=== PATIENT | male | born 1995 | race Caucasian/White ===

== ENCOUNTER 2019-10-22 13:07 | Emergency (ER) | payer SELFPAY ==
[2019-10-22 13:24] VITALS: BP 144/91; PULSE 92; RESP 20; TEMP 36.9; O2SAT 99
--- NOTE | 2019-10-22 14:06 | ED.GENADULT ---
HPI - General Adult General Chief complaint: Urogenital-Male Stated complaint: std check Time Seen by Provider: 10/22/19 14:06 Source: patient and RN notes reviewed Mode of arrival: ambulatory Limitations: no limitations History of Present Illness HPI narrative: 24-year-old male presents with urinary complaints and possible STD for the past 3 days. Dysuria consist of burning, cloudy urine. Trip says he has been having genital itching with green discharge. No treatment. He says discharge, burning with urination, and itching started 3 days after having unprotected sex with a new partner on 10/16/19. Prior to this sexual partner had not had sexual intercourse in months. Denies fever or chills. Denies nausea, vomiting, and abdominal pain. No significant penile pain. Concern for STDs due to history of recently had unprotected intercourse and discharge. Denies multiple partners. No flank pain. Exacerbating factors urinating. Denies hematuria or unusual penile bleeding. Tolerating liquids well. Remains active. The patient reports he have not been diagnosed with COVID-19. The patient reports he are not waiting for the results of a COVID-19 lab test. The patient reports he do not have fever, chills, weakness, fatigue, myalgia, or facial swelling. The patient reports he do not have a new or worsening cough or shortness of breath. Denies chest pain. The patient reports he do not have any rhinorrhea, congestion, sore throat, nausea, vomiting, abdominal pain, and diarrhea. Tolerating po intake well. Denies recent traveling. Denies concerns for COVID-19 or exposures been home since [id number] order except for essential household needs, working, and return home. At this time, patient is not suspected of having COVID-19. Some parts of this dictation were generated by voice recognition software and may contain typographical and/or grammatical inaccuracies. Related Data Allergies Allergy/AdvReac Type Severity Reaction Status Date / Time No Known Allergies Allergy Verified 10/22/19 13:53 Review of Systems Review of Systems: Narrative: CONSTITUTIONAL: Denies fever, chills, sweats. EYES: Denies visual changes, redness, discharge. ENT: Denies rhinorrhea, congestion, sore throat, otalgia. CARDIOVASCULAR: Denies chest pain, palpitations, edema. RESPIRATORY: Denies dyspnea, wheezing, cough. GASTROINTESTINAL: Denies abdominal pain, nausea, vomiting, diarrhea. GENITOURINARY: Denies dysuria, hematuria. Complains of possible STD, genital discharge and itching. SKIN: Denies rash or itching. MUSCULOSKELETAL: Denies acute back pain, joint pain, or myalgia. NEUROLOGIC: Denies numbness, or focal weakness. PSYCHIATRIC: Denies anxiety or depression. All systems reviewed & are unremarkable except as noted in HPI and below. [facility] Past Medical History Medical History (Updated 10/23/19 @ 00:00 by Siomara Johnson) No significant past medical history Surgical History Surgical History (Updated 10/22/19 @ 14:20 by LENNIE Leyva) No significant past surgical history Family History Family History (Updated 10/22/19 @ 14:21 by LENNIE Leyva) Father Hypertension Mother Alive and well Grandparent Alcohol abuse Social History Social History (Updated 10/22/19 @ 14:23 by LENNIE Leyva) Smoking status: Former smoker Smoking end date: 05/27/19 Alcohol intake: current Substance use: current Substance use type: marijuana Living arrangements: with family Occupation/Education: occupation Gender identity (if verbalized by the patient): Male Comments At time of signature, agree with nurse past medical, surgical, social, and family history. There is no relevant family history pertinent to the presenting complaint. Exam Narrative: Exam Narrative: GENERAL: This is a well-nourished, well-developed patient, in no apparent distress. Talks in full sentences and ambulates with steady gait without
[2019-10-22] MEDS: AZITHROMYCIN 250 MG TABLET 1000 MG PO (14:19)
[2019-10-22] MEDS: cefTRIAXone 250 MG VIAL IM (14:25)
[2019-10-22] MEDS: LIDOCAINE HCL 1% LOCAL INJ 20 ML VIAL INFILTRATE (14:26)
== END 2019-10-22 14:48 | disposition home or self-care (01) ==
PROVIDERS: Emergency Provider Nurse Practitioner Family
DX: Z20.2 Contact with and (suspected) exposure to infections with a predominantly sexual mode of transmission (principal); Z87.891 Personal history of nicotine dependence
CPT/HCPCS: 81003; 87086; 87491; 87591; 87661; 96372; 99213; A9270; G0463; J0696

== ENCOUNTER 2021-07-21 12:55 | Emergency (ER) | payer SELFPAY ==
--- NOTE | ~2021-07-21 | CT_ITS ---
EXAMINATION: CT abdomen pelvis w con DATE: 07/21/2021 15:23 INDICATION: Perirectal abscess TECHNIQUE: Computed tomography (CT) of the abdomen and pelvis was performed without intravenous contr ast. Automated exposure control and iterative reconstruction technique were employed. The dose-length product was 993.92 mGy-cm. COMPARISON: None FINDINGS: Lung bases are clear. Heart size is normal. No pericardial or pleural effusion. Liver, gallbladder, p ancreas, spleen, bilateral adrenal glands and kidneys are normal. Bladder is normal. There is mild st randing surrounding a relatively superficial subcutaneous perirectal abscess on the right side of the nose which measures up to 2.4 x 1.1 x 2.0 cm. No deeper extension of the abscess or free intraperito sarah gas or fluid. Bowels including the appendix are normal. No pathologically enlarged abdominal or pelvic lymphadenopathy. Bones are unremarkable. IMPRESSION: 1. 2.4 x 1.1 x 2.0 cm subcutaneous right perirectal abscess. Reviewed, dictated and finalized at location A. SPECIALIST
[2021-07-21 12:59] VITALS: BP 149/97; PULSE 77; RESP 16; TEMP 36.5; O2SAT 100
--- NOTE | 2021-07-21 13:34 | ED.SKABFB ---
HPI - Skin/Abscess/Foreign Bdy General Chief complaint: Skin/Abscess/Foreign Body Stated complaint: rectal pain Time Seen by Provider: 07/21/21 13:21 Source: patient Mode of arrival: ambulatory Limitations: no limitations History of Present Illness HPI narrative: This is a 25-year-old male who presents to the ED with complaints of rectal pain X 3 days. Patient reports having pain just to right of his anus. He has a history of hemorrhoids and states this feels similar, but denies feeling a bulge in the area. The pain became worse at 3am this morning and was temporarily relieved with OTC Tylenol. He states the pain is worse with straining and any movement. He denies any constipation recently and last had a bowel movement this morning, which was normal. He denies any rectal bleeding or discharge. He also denies any abdominal pain, N/V, fevers, chills. Related Data Allergies Allergy/AdvReac Type Severity Reaction Status Date / Time No Known Allergies Allergy Verified 10/22/19 13:53 Review of Systems Review of Systems: CONSTITUTIONAL: Denies fever, chills, or sweats. CARDIOVASCULAR: Denies chest pain. RESPIRATORY: Denies dyspnea. GASTROINTESTINAL: Reports right-sided perianal/rectal pain. Denies abdominal pain, nausea, vomiting, diarrhea, rectal bleeding, rectal discharge, or constipation. GENITOURINARY: Denies dysuria or hematuria. MUSCULOSKELETAL: Denies back pain. NEUROLOGIC: Denies weakness. All systems reviewed & are unremarkable except as noted in HPI and below PMFSH Past Medical History Medical History (Updated 07/21/21 @ 17:55 by Mariam Archuleta PA-C) Hemorrhoids No significant past medical history Perirectal abscess Surgical History Surgical History No significant past surgical history Family History Family History Father Hypertension Mother Alive and well Grandparent Alcohol abuse Social History Social History (Updated 07/21/21 @ 15:15 by Mariam Archuleta PA-C) Smoking status: Current every day smoker Tobacco type: e-cigarettes/vaping Gender identity (if verbalized by the patient): Male Exam Narrative: APPEARANCE: Well appearing, no pain in distress, well-nourished. HEAD: Normocephalic, atraumatic. RESPIRATORY: Airway patent, respirations nonlabored. Clear to auscultation bilaterally, no rales, rhonchi, wheezing. CARDIOVASCULAR: Regular rate and rhythm without murmurs rubs or gallops. ABDOMINAL: Soft, nontender, nondistended, normoactive bowel sounds RECTAL: Normal tone. Stool without gross blood. No obvious external hemorrhoids. No internal hemorrhoids appreciated on BISHOP. Small 2cm area of erythema and induration with central fluctuance to the right lateral margin of the anus @ approximately 3 o'clock location. MUSCULOSKELETAL: Moves all extremities. Strength/ROM intact, No edema NEURO: Alert. Cranial nerves II- XII grossly intact. Good coordination SKIN: Warm, dry. Normal Color PSYCHIATRIC: Normal affect/mood, normal interaction. Course Consultations Consultation #1: Dr. Gutierrez, General Surgery Discussed patient presentation and work-up. He recommends I&D, TID sitz baths, and discharging home on oral antibiotics. Patient to follow-up in his office late next week. Date: 07/21/21 Time: 16:40 Vital Signs Vital signs: Vital Signs Temperature 97.7 F 07/21/21 12:59 Pulse Rate 77 07/21/21 12:59 Respiratory Rate 16 07/21/21 12:59 Blood Pressure 149/97 H 07/21/21 12:59 Pulse Oximetry 100 07/21/21 12:59 Temperature 97.7 F 07/21/21 12:59 Pulse Rate 82 07/21/21 18:07 Respiratory Rate 18 07/21/21 18:07 Blood Pressure 149/97 H 07/21/21 12:59 Pulse Oximetry 99 07/21/21 18:07 Procedures Abscess I/D janet-rectal: Date of Incision: 07/21/21 Time of Incision: 17:00 Side (if applicable): right Sedation/analgesia: none
[2021-07-21] MEDS: SODIUM CHLORIDE 0.9% IV 1,000 ML 999 ML IV CONT (14:21)
[2021-07-21] MEDS: ACETAMINOPHEN 500 MG TABLET 1000 MG PO (14:22)
[2021-07-21 14:35] LABS: Basophils Absolute Auto 0.1 K/mm3 (0.0-0.1); Basophils Percent Auto 0.5 % (0.2-1.2); Eosinophils Absolute Auto 0.2 K/mm3 (0-0.3); Eosinophils Percent Auto 1.1 % (0-4.4); Hematocrit 48.8 % (42.0-52.0); Hemoglobin 16.6 g/dL (14.0-18.0); Immature Granulocyte Absolute 0.07 K/mm3 (0.00-0.031); Immature Granulocyte Percent A 0.5 % (0-0.5); Lymphocytes Absolute Auto 1.68 K/mm3 (0.9-3.2); Lymphocytes Percent Auto 12.1 % (18.3-44.2); Mean Corpuscular Hemoglobin 31.2 pg (26-34); Mean Corpuscular Volume 91.7 fl (80-100); Monocytes Absolute Auto 1.6 K/mm3 (0.1-0.6); Monocytes Percent Auto 11.2 % (2.6-8.5); Neutrophils Absolute Auto 10.4 K/mm3 (1.3-6.7); Neutrophils Percent Auto 74.6 % (45.5-73.1); Platelet Count Result 247 k/mm3 (150-375); Red Blood Count 5.32 M/mm3 (4.6-6.20); Red Cell Distribution Width 12.6 % (11.5-14.5); White Blood Count 13.9 K/mm3 (4.5-10.0)
[2021-07-21 14:50] LABS: Anion Gap 11 mmol/L (8-16); Blood Urea Nitrogen 8 mg/dL (9-20); Calcium 9.6 mg/dL (8.4-10.2); Carbon Dioxide 25 mmol/L (22-30); Chloride 102 mmol/L (98-107); Estimated CRCL calculation 179 ml/min; Estimated Glomerular Filt Rate > 60; Glucose 95 mg/dL (65-110); Potassium 4.1 mmol/L (3.4-5.0); Sodium 138 mmol/L (137-145)
[2021-07-21] MEDS: HYDROmorphone HCL INJ (*CRX) 1 MG/ML SYR 0.5 MG IV PUSH (17:29)
[2021-07-21] MEDS: ONDANSETRON INJ 4 MG/2 ML VIAL IV PUSH (17:32)
[2021-07-21] MEDS: LIDO 2%/EPINEPHRINE 1:100,000 20 ML VIAL INFILTRATE (17:39)
[2021-07-21 18:07] VITALS: PULSE 82; RESP 18; O2SAT 99
== END 2021-07-21 18:08 | disposition home or self-care (01) ==
PROVIDERS: Physician Assistant; Emergency Provider General Practice
DX: K61.1 Rectal abscess (principal); K62.89 Other specified diseases of anus and rectum; F17.290 Nicotine dependence, other tobacco product, uncomplicated
CPT/HCPCS: 36415; 46040; 74177; 80048; 85025; 96361; 96374; 96375; 99284; A9270; J1170; J2405; J7030; Q9967

== ENCOUNTER 2021-09-14 16:47 | Emergency (ER) | payer SELFPAY ==
[2021-09-14 16:54] VITALS: BP 152/82; PULSE 92; RESP 16; TEMP 36.7; O2SAT 100
--- NOTE | 2021-09-14 16:54 | ED.EYEPROB ---
HPI - Eye Problem General Chief complaint: Eye Problems Stated complaint: Right eye pain Time Seen by Provider: 09/14/21 16:54 Source: patient and RN notes reviewed History of Present Illness HPI Narrative: Patient is a 25-year-old male who presents the urgent care with complaints of right eye pain. Patient states this morning he was cutting wood and was wearing eye protection however he believes he got some sawdust on the right eye . Patient states that occurred early this afternoon and he has tried flushing the eye without any improvement. Patient states that its painful to look to the right and he is having clear drainage with redness. Denies of any blunt force trauma injury. Denies any changes in vision. No other acute complaints. No acute distress noted. Patient aware of the plan of care. Some parts of this dictation were generated by voice recognition software and may contain typographical and/or grammatical inaccuracies. Related Data Allergies Allergy/AdvReac Type Severity Reaction Status Date / Time No Known Allergies Allergy Verified 09/14/21 16:55 Review of Systems Review of Systems: CONSTITUTIONAL: Denies fever, chills, or sweats. EYES: Reports a possible foreign body to the right eye with pain/discomfort ENT: Denies rhinorrhea, congestion, sore throat, or otalgia. CARDIOVASCULAR: Denies chest pain, palpitations, or edema. RESPIRATORY: Denies cough or dyspnea. GASTROINTESTINAL: Denies abdominal pain, nausea, vomiting, or diarrhea. GENITOURINARY: Denies dysuria or hematuria. SKIN: Denies rash or itching. MUSCULOSKELETAL: Denies back pain, joint pain, or myalgia. NEUROLOGIC: Denies headache, numbness, or weakness. All other systems reviewed are negative, except as documented in HPI. [facility] Past Medical History Medical History (Updated 09/14/21 @ 17:23 by LENNIE Hernandez) Hemorrhoids No significant past medical history Perirectal abscess Surgical History Surgical History No significant past surgical history Family History Family History Father Hypertension Mother Alive and well Grandparent Alcohol abuse Social History Social History (Updated 07/21/21 @ 15:15 by Mariam Archuleta PA-C) Smoking status: Current every day smoker Tobacco type: e-cigarettes/vaping Gender identity (if verbalized by the patient): Male Comments At the time of my signature, I reviewed and agree with the nursing past medical, surgical, social, and family history. There is no relevant family history pertinent to the patient complaint. Exam Narrative: GENERAL: This is a well-nourished, well-developed patient, in no apparent distress. HEAD: normocephalic, atraumatic. EYES: PERRL. Left sclera clear/white. Right sclera moderately injected with injected right conjunctive a and clear tearing/drainage. EARS: External ears normal NOSE: External nose normal with no obvious nasal discharge, nares without redness, no rhinorrhea. THROAT: Mucous membranes moist NECK: Neck supple SKIN: warm, intact with no suspicious lesions or rash, good texture and turgor. NEURO: awake, alert, and oriented to person, place and time. There were no obvious focal neurologic abnormalities. EXTREMITIES: No clubbing, cyanosis, or edema. Course Course Level of Care: Express Care Visit Vital Signs Vital signs: Vital Signs Temperature 98.0 F 09/14/21 16:54 Pulse Rate 92 09/14/21 16:54 Respiratory Rate 16 09/14/21 16:54 Blood Pressure 152/82 H 09/14/21 16:54 Pulse Oximetry 100 09/14/21 16:54 Temperature 98.0 F 09/14/21 16:54 Pulse Rate 92 09/14/21 16:54 Respiratory Rate 16 09/14/21 16:54 Blood Pressure 152/82 H 09/14/21 16:54 Pulse Oximetry 100 09/14/21 16:54 Reviewed-patient is informed that they may have pre-hypertension or hypertension based on a blood pressure reading in the department. I
== END 2021-09-14 17:27 | disposition home or self-care (01) ==
PROVIDERS: Emergency Provider Nurse Practitioner Family
DX: T15.11XA Foreign body in conjunctival sac, right eye, initial encounter (principal); X58.XXXA Exposure to other specified factors, initial encounter; F17.290 Nicotine dependence, other tobacco product, uncomplicated
CPT/HCPCS: 65205; 99213; A9270; G0463

== ENCOUNTER 2024-02-27 08:29 | Day surgery (SDC) | payer SELFPAY ==
[2024-02-27] VITALS (12 sets, daily range): BP systolic 128–167; BP diastolic 75–96; PULSE 84–110; RESP 17–23; TEMP 36.6–37.4; O2SAT 93–100
--- NOTE | ~2024-02-27 | CT_ITS ---
CT pelvis w con Ordering provider: Edwin Jeffery MD History: . Nata-rectal abscess . Comparison: None. Technique: CT pelvis without oral and IV contrast. . Automated exposure control and iterative recons truction technique were employed. The dose-length product was 1089.66 mGy-cm. 100 mL Omnipaque 350 wa s given IV. Findings: BONES: No pelvic fracture or hip dislocation. Normal visualized lower lumbar spine. The hip and sacro iliac joint spaces are well maintained. SUPERFICIAL SOFT TISSUES: Left perineal/gluteal abscess is noted medially which measures 2.1 x 1.9x 3 .7 cm. Left inguinal enlarged lymph nodes with the largest measures 1.8 cm. PELVIC ORGANS: The bladder is underfilled.. VISUALIZED BOWEL AND MESENTERY: Normal. No free air or free fluid. No lymphadenopathy. RETROPERITONEUM: Normal.. IMPRESSION: Left perineal abscess. Left inguinal enlarged lymph nodes Reviewed, dictated and finalized at location A.
[2024-02-27 09:57] LABS: Basophils Absolute Auto 0.1 K/mm3 (0.0-0.1); Basophils Percent Auto 0.5 % (0.2-1.2); Eosinophils Absolute Auto 0.2 K/mm3 (0-0.3); Hematocrit 44.7 % (42.0-52.0); Hemoglobin 15.4 g/dL (14.0-18.0); Immature Granulocyte Absolute 0.04 K/mm3 (0.00-0.031); Immature Granulocyte Percent A 0.3 % (0-0.5); Lymphocytes Absolute Auto 1.52 K/mm3 (0.9-3.2); Lymphocytes Percent Auto 10.4 % (18.3-44.2); Mean Corpuscular HGB Conc 34.5 g/dl (32-36); Mean Corpuscular Hemoglobin 30.3 pg (26-34); Mean Platelet Volume 10.1 fl (7.4-10.4); Monocytes Absolute Auto 1.2 K/mm3 (0.1-0.6); Monocytes Percent Auto 8.3 % (2.6-8.5); Neutrophils Absolute Auto 11.6 K/mm3 (1.3-6.7); Neutrophils Percent Auto 79.5 % (45.5-73.1); Platelet Count Result 239 k/mm3 (150-375); Red Blood Count 5.08 M/mm3 (4.6-6.20); Red Cell Distribution Width 11.9 % (11.5-14.5); White Blood Count 14.6 K/mm3 (4.5-10.0)
[2024-02-27 10:09] LABS: Alanine Aminotransferase 16 U/L (6-50); Albumin Level 4.7 g/dL (3.5-5.1); Alkaline Phosphatase 78 U/L (38-126); Anion Gap 9 mmol/L (4-12); Aspartate Amino Transferase 17 U/L (17-59); Bilirubin,Total 0.7 mg/dL (0.2-1.3); Blood Urea Nitrogen 15 mg/dL (9-20); Calcium 9.3 mg/dL (8.4-10.2); Carbon Dioxide 28 mmol/L (22-30); Chloride 100 mmol/L (98-107); Estimated CRCL calculation 166 ml/min; Estimated Glomerular Filt Rate > 60; Glucose 103 mg/dL (65-110); Sodium 137 mmol/L (137-145)
--- NOTE | 2024-02-27 12:34 | ED.GENADULT ---
HPI - General Adult General Chief complaint: Wound/Laceration Stated complaint: abcess to buttocks Time Seen by Provider: 02/27/24 08:52 History of Present Illness HPI narrative: This is a 28-year-old male presenting ED with a chief complaint of rectal pain patient says over last 2-3 days he has felt a swelling/mass near his rectum. It has become painful to touch. He has has a history of perirectal abscess. Patient says he has had subjective fevers but has not taken temperature. No nausea vomiting diarrhea. Related Data Allergies Allergy/AdvReac Type Severity Reaction Status Date / Time No Known Allergies Allergy Verified 02/27/24 08:36 [facility] Past Medical History Medical History Hemorrhoids No significant past medical history Perirectal abscess Surgical History Surgical History No significant past surgical history Family History Family History Father Hypertension Mother Alive and well Grandparent Alcohol abuse Social History Social History Smoking status: Current every day smoker Tobacco type: e-cigarettes/vaping Living arrangements: with family Occupation/Education: occupation Gender identity (if verbalized by the patient): Male Exam Narrative: APPEARANCE: No apparent distress. Head: atraumatic. EYES: EOMI, NOSE: Atraumatic NECK: Trachea midline RESPIRATORY: No increased rate of breathing CARDIOVASCULAR: RRR, ABDOMINAL: Non-distended Rectal: Fluctuant mass involving the Left perirectal area w/ surrounding induration. fluctuance palpaple through anus. MUSCULOSKELETAl: No obvious deformities NEURO: Alert. Moving 4/4 extremities SKIN:: Warm, dry. Normal color PSYCHIATRIC: Normal affect Course Vital Signs Vital signs: Vital Signs Temperature 98.1 F 02/27/24 08:33 Pulse Rate 110 H 02/27/24 08:33 Respiratory Rate 17 02/27/24 08:33 Blood Pressure 167/90 H 02/27/24 08:33 Pulse Oximetry 98 02/27/24 08:33 Oxygen Delivery Room Air 02/27/24 08:33 Temperature 98.1 F 02/27/24 08:33 Pulse Rate 92 02/27/24 10:42 Respiratory Rate 18 02/27/24 10:42 Blood Pressure 159/96 H 02/27/24 10:42 Pulse Oximetry 100 02/27/24 10:42 Oxygen Delivery Room Air 02/27/24 08:33 Medical Decision Making MDM Narrative Medical decision making narrative: -Course: 28 male presenting with a perirectal abscess. I was originally going to drain the abscess but on exam full the fluctuance is too close to the anal verge for me to be comfortable doing it in the emergency room. Dr. Momin will take the patient to the OR for incision and drainage. -DDX includes but is not limited to: Perirectal abscess, perineal abscess cellulitis, janet-sphincter abscess -Co-morbidities complicating care: History of perirectal abscess -Independent interpretation of studies: White count 14.6 CT pelvis showed a perineal abscess. -Discussion of Management/Consultants:Dr. Momin -Interventions: Sterling 5 mg x 2 -Shared decision making / Disposition: OR Vital Signs Vital Signs: Vital Signs Temperature 98.1 F 02/27/24 08:33 Pulse Rate 110 H 02/27/24 08:33 Respiratory Rate 17 02/27/24 08:33 Blood Pressure 167/90 H 02/27/24 08:33 Pulse Oximetry 98 02/27/24 08:33 Oxygen Delivery Room Air 02/27/24 08:33 Temperature 98.1 F 02/27/24 08:33 Pulse Rate 92 02/27/24 10:42 Respiratory Rate 18 02/27/24 10:42 Blood Pressure 159/96 H 02/27/24 10:42 Pulse Oximetry 100 02/27/24 10:42 Oxygen Delivery Room Air 02/27/24 08:33 Lab Data 02/27/24 09:47 02/27/24 09:47 Labs: Lab Results 02/27/24 Range/Units 09:47 WBC 14.6 H (4.5-10.0) K/mm3 RBC 5.08 (4.6-6.20) M/mm3 Hgb 15.4 (14.0-18.0) g/dL Hct 44.7 (42.
[2024-02-27] MEDS: HYDROcodone/acetaminophen (*CRX) 5-325 MG TABLET 2 TAB PO (13:01)
--- NOTE | 2024-02-27 13:53 | PM.SD2 ---
Same Day Admit/Disch: HPI History of Present Illness Chief complaint: Perirectal abscess Narrative: Dexter Sotelo is a 28 year old male who presented to the emergency room with 2-3 days of perianal pain. He also noted feelings of being feverish although he did not take his temperature. He noticed a tender lump in the perianal area as well. He came to the emergency room where he was noted to have leukocytosis and a perirectal abscess. CT scan was done and showed these findings as well. This is a recurrent perirectal abscess as the patient presented with a perirectal abscess July 21, 2021. He is taken to surgery now for incision and drainage of perirectal abscess. [facility] Past Medical History Medical History (Updated 02/27/24 @ 16:54 by Dung Momin MD) Hemorrhoids No significant past medical history Surgical History Surgical History No significant past surgical history Family History Family History Father Hypertension Mother Alive and well Grandparent Alcohol abuse Social History Social History Smoking status: Current every day smoker Tobacco type: e-cigarettes/vaping Living arrangements: with family Occupation/Education: occupation Gender identity (if verbalized by the patient): Male Same Day Admit/Disch: Med Pre-admit Medications Home Medications Medication Instructions Recorded Confirmed Type ofloxacin 0.3 % eye drops 2 drp RIGHT EYE QID 7 days #10 mL 09/14/21 Rx ketorolac 10 mg tablet 10 mg PO Q6H 4 days #16 tabs 02/27/24 Rx oxycodone-acetaminophen 5 mg-325 0.5 - 1 tablet PO Q6H PRN pain #20 02/27/24 Rx mg tablet tabs Review of Systems Review of Systems All systems reviewed & are unremarkable except as noted in HPI and below (HPI and those items noted below) Constitutional Constitutional: Reports as per HPI, Reports body ache(s), Reports chills and Reports fever(s) Cardiovascular Cardiovascular: Denies chest pain, Denies diaphoresis, Denies dyspnea and Denies paroxysmal nocturnal dyspnea Respiratory Respiratory: Denies chest congestion, Denies cough and Denies dyspnea Gastrointestinal Gastrointestinal: Reports as per HPI, Denies nausea and Denies vomiting Integumentary/Breasts Skin/Breast: Denies lesions and Denies rash Exam Const: General: cooperative, no acute distress, alert, awake, tired appearing, uncomfortable and obese HENMT: Head: normocephalic and atraumatic Mouth: Yes Normal oral and palatal mucosa present Eyes: Conjunctivae: conjunctivae normal Pupils: Equal, round and reactive pupils present EOM: EOMs intact bilaterally Neck: Neck: normal visual inspection, no lymphadenopathy and nontender Resp: Effort & Inspection: normal respiratory effort Auscultation: clear to auscultation bilaterally Cardio: Rate: regular rate Rhythm: regular rhythm Heart sounds: no gallops, no murmurs and no rubs GI: Inspection: non-distended, obesity and no visible herniation GI Palp: Yes Soft to palpation, No Tenderness to palpation present (GI), No Hepatomegaly present and No Splenomegaly present Rectal Exam: abscess (Left side of anal canal), No mass and tenderness Skin: Lesions: no lesions Rashes: no rashes Neuro: General: no focal motor deficits and CN's II-XI intact bilaterally Cranial nerves: Yes Equal, round and reactive pupils present, Yes Bilaterally intact EOM present, Yes facial symmetry and Yes Midline tongue present Speech: normal speech Motor exam (neuro): 5/5 motor strength present throughout and Motor abnormalities not present Extrem: General: no clubbing, cyanosis or edema and edema Psych: Affect: normal affect Thought process: Normal thought process present Insight: Good insight present (Psych) DS: Data Data Completed and Pending Labs on day of discharge: Labs fro
--- NOTE | 2024-02-27 14:42 | WPDANESEPPF ---
Anes - Initial Pre Proc Eval Procedure: Operation Date: 02/27/24 15:00 Proposed Procedures p Incision and Drainage Nata-Rectal Abscess - Dung Momin MD Date/Time: 02/27/24 14:42 Surgeon: Dung Momin MD Pre Op Diagnosis: Perirectal abscess Patient Data Age: 28 Gender: M Height: 1.83 m Weight: 127 kg Last Vital Signs Temp 98.1 F 02/27/24 08:33 Pulse 107 H 02/27/24 14:14 Resp 18 02/27/24 14:14 BP 161/93 H 02/27/24 14:14 Pulse Ox 97 02/27/24 14:14 O2 Del Method Room Air 02/27/24 08:33 Allergies Allergy/AdvReac Type Severity Reaction Status Date / Time No Known Allergies Allergy Verified 02/27/24 08:36 Home Medications Medication Instructions Recorded Confirmed Type ofloxacin 0.3 % eye drops 2 drp RIGHT EYE QID 7 days #10 mL 09/14/21 Rx Laboratory Tests 02/27/24 09:47 WBC 14.6 H K/mm3 (4.5-10.0) RBC 5.08 M/mm3 (4.6-6.20) Hgb 15.4 g/dL (14.0-18.0) Hct 44.7 % (42.0-52.0) MCV 88.0 fl (80-100) MCH 30.3 pg (26-34) MCHC 34.5 g/dl (32-36) RDW 11.9 % (11.5-14.5) Plt Count 239 k/mm3 (150-375) MPV 10.1 fl (7.4-10.4) Immature Gran % (Auto) 0.3 % (0-0.5) Neut % (Auto) 79.5 H % (45.5-73.1) Lymph % (Auto) 10.4 L % (18.3-44.2) [place] % (Auto) 8.3 % (2.6-8.5) Eos % (Auto) 1.0 % (0-4.4) Baso % (Auto) 0.5 % (0.2-1.2) Lymph # (Auto) 1.52 K/mm3 (0.9-3.2) [place] # (Auto) 1.2 H K/mm3 (0.1-0.6) Eos # (Auto) 0.2 K/mm3 (0-0.3) Baso # (Auto) 0.1 K/mm3 (0.0-0.1) Abs Immat Gran (auto) 0.04 H K/mm3 (0.00-0.031) Absolute Neuts (auto) 11.6 H K/mm3 (1.3-6.7) Absolute Nucleated RBC 0.000 K/mm3 (0.0-0.012) Nucleated RBC % 0.0 % (0.0-0.2) Sodium 137 mmol/L (137-145) Potassium 4.0 mmol/L (3.4-5.0) Chloride 100 mmol/L (98-107) Carbon Dioxide 28 mmol/L (22-30) Anion Gap 9 mmol/L (4-12) BUN 15 D mg/dL (9-20) Creatinine 0.80 mg/dL (0.7-1.3) Estim Creat Clear Calc 166 ml/min Estimated GFR > 60 (59 - ) Glucose 103 mg/dL (65-110) Calcium 9.3 mg/dL (8.4-10.2) Total Bilirubin 0.7 mg/dL (0.2-1.3) AST 17 U/L (17-59) ALT 16 U/L (6-50) Alkaline Phosphatase 78 U/L (38-126) Total Protein 8.0 g/dL (6.3-8.2) Albumin 4.7 g/dL (3.5-5.1) Patient hx anesthesia problems: none Family hx anesthesia problems: none Results Review: All pre-operative results and documents have been reviewed as part of the pre-operative evaluation. [facility] Past Medical History Medical History Hemorrhoids No significant past medical history Perirectal abscess Surgical History Surgical History No significant past surgical history Family History Family History Father Hypertension Mother Alive and well Grandparent Alcohol abuse Social History Social History Smoking status: Current every day smoker Tobacco type: e-cigarettes/vaping Living arrangements: with family Occupation/Education: occupation Gender identity (if verbalized by the patient): Male Anes - Eval Final PreProcedure Day of Procedure 02/27/24 14:42 Patient weight: normal Heart: regular rate and rhythm Lungs: clear to auscultation Airway: Mallampati scale class III Neurological: alert and oriented Last oral intake: >/= 8 hours ASA classification: II Emergent: yes Anesthetic plan: proceed Anesthesia type and monitoring: general ETT and standard monitoring Results Review: All pre-operative results and documents have been reviewed as part of the pre-operative evaluation. Pt vapes daily, today at 9 am. Informed Consent: The patient's anesthetic plan and its
--- NOTE | 2024-02-27 15:19 | WPDHPUPDATE1 ---
History and Physical Update Update Date/Time: 02/27/24 15:19 History and Physical has been reviewed, including an updated exam of the patient. There are NO changes in the patient's condition. Risks, benefits, and alternatives have been discussed and questions answered. Patient agrees to proceed with procedure.
[2024-02-27] MEDS: BUPIVACAINE/EPINEPHRINE 0.5% 50 ML VIAL 10 ML INFILTRATE (16:06)
[2024-02-27] MEDS: LACTATED RINGERS 1,000 ML 30 ML IV CONT ×2 (16:30→16:38)
--- NOTE | 2024-02-27 16:37 | W.PM.PROC2 ---
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 He has had a previous perirectal abscess 2-1/2 years ago which was incised and drained by the emergency room physician. He has wears that this abscess was on the right side of the anus. The current tender lump he is experiencing is on the left side. He also had noticed persistent purulent drainage even before the current abscess developed. He is taken to surgery now for incision and drainage of perirectal abscess as well as rectal exam under anesthesia. Findings Patient had a chronic intersphincteric short fistula near the posterior midline. Probing of this was done easily. The perirectal abscess was just to the left of anterior midline. After being drained, there was an obvious connection to the anterior midline of a 2nd fistula which was also short and intersphincteric. No other significant anorectal pathology was noted. Description of Procedure Patient was taken to surgery and induced into general anesthesia. He was then turned prone cortney-knife position. After shaving the buttocks, the buttocks were taped apart. Prep and drape was carried out. I reviewed the anal rectal area. The area of the abscess was easily palpated and was near the rectum but anterior and slightly left of the anterior midline. Hill-Soriano anoscope was were placed in the rectum and after pushing on the abscess I did not see any purulent fluid coming from the dentate line. About this time, I noticed purulent fluid in the posterior aspect of the perianal area. This was just slightly to the left of midline. I passed a probe through this chronic fistula which did not have an abscess. It showed a very short, 1-1/2 cm intersphincteric fistula. I was not sure that the chronic fistula was not in some way related to the current perirectal abscess. I placed a red vessel loop through the chronic fistula posteriorly in the midline and tagged it. I then turned my attention to the perirectal abscess in the anterior aspect. I made a cruciate incision over the abscess and abundant purulent fluid came forth. This was suctioned away and the abscess cavity probed. This seemed to track directly to the anterior midline. I gently passed a probe and found an internal opening in the anterior midline and a 2nd short intersphincteric fistula in ANO. I passed a red vessel loop through the abscess and the internal opening and clamped it as well. I then checked the anal canal and tried to find any additional tracking either posterior or anterior from the abscess. I could not find any. I went ahead and performed a fistulotomy over the posterior chronic fistula. The red vessel loop was removed and the probe was replaced. I cauterized the skin and subcutaneous over the probe and created the fistulotomy. The wound was opened and some of the granulation tissue was curetted. Cautery was used to achieve hemostasis. This wound looked good. I then again looked at the left anterior abscess and fistula. The actual fistula here was again very short and intersphincteric. I opted to go ahead and perform a primary fistulotomy at the time of the incision and drainage. Again the probe was passed and I opened the fistula over the probe with the cautery. I then cauterized the bleeding areas of the skin and submucosa. Relative hemostasis was achieved but I still had to pack the anterior abscess fistulotomy with half-inch iodoform Nu Gauze. I then used Xeroform gauze and placed some
[2024-02-27] MEDS: fentaNYL CITRATE INJ (*CRX) 100 MCG/2 ML VIAL 25 MCG IV PUSH ×6 (16:46→18:05)
[2024-02-27] MEDS: oxyCODONE HCL (*CRX) 5 MG TAB IR PO (17:45)
== END 2024-02-27 18:53 | disposition home or self-care (01) ==
LOC: ANHED 13:57 → ANHSURGERY 14:09
PROVIDERS: Emergency Provider Emergency Medicine; Visit Provider Surgery
PROC: (CPT 46040; principal; 2024-02-27 15:00)
DX: K61.1 Rectal abscess (principal); F17.290 Nicotine dependence, other tobacco product, uncomplicated
CPT/HCPCS: 45005; 46275; 36415; 72193; 80053; 85025; 99285; A9270; J0330; J1100; J2003; J2250; J2405; J2704; J3010; J7120; Q9967